=== PATIENT | male | born 1975 | race African-American/Black ===

== ENCOUNTER 2017-06-29 02:20 | Emergency (ER) | payer MEDICAID ==
--- NOTE | 2017-06-29 02:33 | ED Physician Chart ---
ED Chief Complaint/HPI - Patient Information Date Seen:: 06/29/17 Time Seen:: 02:25 Chief Complaint:: anxiety episode History of Present Illness:: location: general quality: anxiety severity: mild duration: few hours context: pt was arrested by [place] police department earlier this evening. reports onset of anxiety attack when arrested. evaluated in police department initially. discharged from police custody and says he was told he was free to go. reports that he still had anxiety and wanted to go to ER for evaluation and treatment. no pain complaint. no vomiting, no chest pain, no SOB. has prior history of anxiety and stress reactions. no suicidal or homicidal ideation. mod factors: none assoc s/s: none hx from pt and medic Historian:: Patient, EMS Review:: Nurse's Note Reviewed, EMS run form Reviewed ED Review of Systems - Review of Systems General/Constitutional: No fever, No chills, No weight loss, No weakness, No diaphoresis, No edema, No loss of appetite Skin: No skin lesions, No rash, No bruising Head: No headache, No light-headedness Eyes: No loss of vision, No pain, No diplopia ENT: No earache, No nasal drainage, No sore throat, No tinnitus Neck: No neck pain, No swelling, No thyromegaly, No stiffness, No mass noted Cardio Vascular: No chest pain, No palpitations, No PND, No orthopnea, No edema Pulmonary: No SOB, No cough, No sputum, No wheezing GI: No nausea, No vomiting, No diarrhea, No pain, No melena, No hematochezia, No constipation, No hematemesis G/U: No dysuria, No frequency, No hematuria Musculoskeletal: No bone or joint pain, No back pain, No muscle pain Endocrine: No polyuria, No polydipsia Psychiatric: No prior psych history, No depression, No anxiety, No suicidal ideation Hematopoietic: No bruising, No lymphadenopathy Allergic/Immuno: No urticaria, No angioedema Neurological: No syncope, No focal symptoms, No weakness, No paresthesia, No headache, No seizure, No dizziness, No confusion, No vertigo ED Past Medical History - Past Medical History Past Medical History: No significant medical hx Family History: None Social History: Non Smoker, No Alcohol, No Drug Use Surgical History: None Psychiatricy History: Schizophrenia, Other (anxiety) Medication: None ED Physical Exam - Physical Examination General/Constitutional: Awake, Well-developed, well-nourished, Alert, No distress, GCS 15, Non-toxic appearing, Ambulatory Head: Atraumatic Eyes: Lids, conjuctiva normal, PERRL, EOMI Skin: Nl inspection, No skin lesions, Well hydrated ENMT: External ears, nose nl, Oropharynx nl Neck: Nontender, Full ROM w/o pain Respiratory: Nl effort/Exclusion, Clear to Auscultation, No Wheeze/Rhonchi/Rales Cardio Vascular: RRR, No murmur, gallop, rubs, NL S1 S2 GI: No tenderness/rebounding/guarding, Normal BS's, Nondistended : No CVA tenderness Extremities: No tenderness or effusion, normal strength in all extremities, No edema, Normal digits & nails Neuro/Psych: Alert/oriented, Judgement/insight normal (pt reports anxiety but is seated on gurney, comfortable, non tachypneic, stable vital signs. pt appears comfortable and relaxed. ), Mood normal, Normal gait, No focal deficits Misc: Normal back, No paraspinal tenderness ED Assessment - Assessment General Assessment: stable patient with report of anxiety episode. medical decision making: pt with no visible criteria for anxiety episode at this time. pt appears relaxed and comfortable. will advise pt to FU with his psychiatrist for further management and any med refills needed. ED Septic Shock - . Is Septic Shock (SBP<90, OR Lactate>4 mmol\L) present?: No - <6hrs of presentation: Assessment of Lungs: Lung CTA bilateral Assessment of Heart: RRR Capillary refill evaluation: Capillary refill < 2 secs Skin Exam: Warm, Dry, Good Turgur ED Reassessment (Disposition) - Reassessment Reassessment:: pt in stable condition while in ER. stable vital signs Reassessment Condition:: Unchanged, Improved - Diagnosis Diagnosis:: anxiety episode, mild, improved spontaneously - Aftercare/Follow up Instructions Aftercare/Follow-Up Instructions:: Refer to Discharge Instructions Notes:: go to clinic for recheck tomorrow - Patient Disposition Discharge/Transfer:: Home Condition at Disposition:: Stable, Improved
== END 2017-06-29 03:35 | disposition home or self-care (01) ==
LOC: ER 02:20
DX: F41.9 Anxiety disorder, unspecified (principal)
CPT/HCPCS: Z7502